=== PATIENT | male | born 1995 | race Caucasian/White ===

== ENCOUNTER → 2023-09-06 09:27 | Outpatient (CLI) | payer OTHER, SELFPAY ==
--- NOTE | 2023-09-06 09:29 | DI.ECHO.S_ITS ---
[facility] +---------+ : : [address] : : [address] : : : : [place], : : : : [place] [id number] : : : : Phone: [phone] + Formerly [id number] Echocardiogram Report + + :Name: NATE MO Study Date: 09/06/2023 Height: 77 in : :[facility] ReadingLocation: Weight: 175 lb : : Gender: Male BSA: 2.1 m2 : :: 1995 Age: 28 yrs BP: 141/94 mmHg: :Reason For Study: SVT : :Ordering Physician: JEM, : :YENI Performed By: Lionel Harris : :Referring: YENI PARISH : + + Interpretation Summary The left ventricle is normal in size and wall thickness. The left ventricular ejection fraction is normal. The ejection fraction is estimated to be 55-60%. The right ventricle is normal in size and function. No significant valvular pathology seen. Pulmonary artery pressures cannot be estimated because of the lack of a measurable TR jet velocity but the IVC suggests a CVP of around 8 mmHg. Procedure: A two-dimensional transthoracic echocardiogram with color flow and Doppler was performed. The study quality was technically adequate. There is no prior echocardiogram noted for this patient. The heart rate ranged between 76-122 bpm during the study. The patient was in normal sinus rhythm during the exam. Left Ventricle: The left ventricle is normal in size and wall thickness. There is no thrombus. Trabeculae near apex are visualized. No thrombus is observed. The ejection fraction is estimated to be 55-60%. The left ventricular ejection fraction is normal. There are no focal wall motion abnormalities. Diastolic parameters suggest probable normal left ventricular diastolic function and normal filling pressures. Right Ventricle: The right ventricle is normal in size and function. The right ventricular systolic function is normal. Atria: The left atrium is borderline dilated. Right atrial size is normal. The interatrial septum grossly appears intact with no obvious evidence for an atrial septal defect. Mitral Valve: There is a flat closure plane of the the mitral valve leaflets. The mitral valve is normal. Redundant elongated chordae are noted. There is trace mitral regurgitation. Aortic Valve: The aortic valve is trileaflet. There is no aortic valve stenosis. No aortic regurgitation is present. Tricuspid Valve: The tricuspid valve is normal in structure and function. There is no tricuspid stenosis. There is trace tricuspid regurgitation. Pulmonary artery pressures cannot be estimated because of the lack of a measurable TR jet velocity but the IVC suggests a CVP of around 8 mmHg. Pulmonic Valve: The pulmonic valve is not well seen, but is grossly normal. There is no pulmonic valvular stenosis. There is no pulmonic valvular regurgitation. Great Vessels: The aortic root is normal size. The dimensions of the ascending aorta are normal. The IVC is of normal diameter and collapses greater than 50% with a sniff. This suggests a low right atrial pressure of 3 mm Hg. Pericardium/ Pleura There is no pericardial effusion. There is an anterior echo-free space consistent with a fat pad. There is no pleural effusion. MMode/2D Measurements & Calculations LVIDd: 5.3 cm LVOT diam: 2.0 cm LVIDs: 3.8 cm Ao root diam: 3.3 cm IVSd: 0.85 cm asc Aorta Diam: 2.6 cm LVPWd: 0.65 cm Ao Arch Diam (Prox Trans): 2.6 cm LV das. diameter/BSA (cm/m^2): 2.5 LV sys. diameter/BSA (cm/m^2): 1.8 FS: 27.6 % LA A2 area: 21.4 cm2 RA long axis: 4.0 cm LA A4 area: 20.1 cm2 RA area: 13.5 cm2 LA length (vol): 5.3 cm RA vol: 38.7 ml LA vol: 68.4 ml RA : 18.3 ml/m2 LA vol index: 32.4 ml/m2 RVD1 (basal): 3.7 cm IVC diam: 1.7 cm RVD2 (mid): 3.1 cm TAPSE: 3.2 cm Doppler Measurements & Calculations Ao V2 max: 140.8 cm/sec LVOT Max [place]: 107.8 cm/sec Ao V2 mean: 95.8 cm/sec LV V1 max P.6 mmHg Ao V2 VTI: 26.8 cm LV V1 VTI: 24.1 cm Ao max P.9 mmHg Ao mean P.2 mmHg QUIRINO(I,D): 2.9 cm2 MV E max glenroy: 141.5 cm/sec QUIRINO(V,D): 2.5 cm2 MV A max gl[place]roy: 70.5 cm/sec QUIRINO indexed to BSA (cm^2/m^2): 1.4 MV E/A: 2.0 sev ratio: 0.90 Med Peak E' [place]: 14.7 cm/sec E/E' med: 9.6 Lat Peak E' [place]: 14.2 cm/sec E/E' lat: 9.9 E/e' average: 9.8 MV dec time: 0.12 sec TR max glenroy: 295.2 cm/sec TR max P.9 mmHg PA V2 max: 95.8 cm/sec SV(LVOT): 78.8 ml PA V2 mean: 71.1 cm/sec PA mean P.2 mmHg PA pr(Accel): 21.2 mmHg Reading Physician:01:[id number] PM
== END ==
PROVIDERS: Referring Provider Internal Medicine Cardiovascular Disease; Visit Provider Internal Medicine Cardiovascular Disease
DX: I47.10 Supraventricular tachycardia, unspecified (principal)
CPT/HCPCS: 93306